=== PATIENT | female | born 1950 | race Caucasian/White ===

== ENCOUNTER → 2017-04-25 | Outpatient (CLI) | payer MEDICARE ==
[~2017-04-25] MED LIST: ASA CHILDREN'S81 MG PO; ATIVAN-DPS0.5 MG PO; CALTRATE-600 W600 MG PO; CLARITIN DPS10 MG PO; COZAAR100 MG PO; FLONASE 0.05% D16 GM NS; LOPRESSOR DPS50 MG PO; MOTRIN-DPS400 MG PO; MULTIPLE VITAM1 EACH PO; OMEGA-3 DPS1000 MG PO; PERCOCET 5 DPS1 TAB PO; PRILOSEC DPS20 MG PO; SYSTANE BALANCE10 ML OU; VITAMIN C1000 MG PO
== END | disposition home or self-care (01) ==
LOC: RAD.S 13:03
DX: C50.212 Malignant neoplasm of upper-inner quadrant of left female breast (principal); I10 Essential (primary) hypertension; Z98.890 Other specified postprocedural states